=== PATIENT | female | born 1965 | race Caucasian/White ===

== ENCOUNTER 2024-11-12 06:20 | Day surgery (SDC) | payer BC, SELFPAY ==
[2024-11-09 09:15] VITALS: BMI 31.9
--- NOTE | 2024-11-11 21:06 | PM.HP.1 ---
History of Present Illness History of Present Illness Chief complaint: Right Toe Amputation Narrative: 58 year old female here for wound check. Patient continues to have redness and swelling to the right second toe with improved intensity. No issues with oral antibiotics. Wound continues to drain and probes to bone since onset more than two months ago. Patient uses knee scooter at work. No pain is reported. Patient's HbA1c is usually in double digits. Patient will be getting the MRI this evening. They do not feel pain when the bone is touched, but can feel pressure. Despite being on insulin, the patient reports difficulty in managing their blood sugar levels. Patient denies n/v/f/c/sob/cp. [facility] Medical History (Updated 11/09/24 @ 09:13 by Lily Banegas, RN) Ocular hypertension Neuropathy HLD (hyperlipidemia) Diabetes Asthma HTN (hypertension) Surgical History (Updated 11/09/24 @ 08:47 by Lily Banegas RN) S/P foot surgery, left (2020) Hx of tonsillectomy Social History Smoking Status: Never smoker alcohol intake: current Meds Home Medications and Allergies Home Medications ?Medication ?Instructions ?Recorded ?Confirmed ?Type aspirin 81 mg capsule 81 mg PO DAILY 11/09/24 11/09/24 History atorvastatin 80 mg tablet 80 mg PO DAILY 11/09/24 11/09/24 History insulin glargine 100 unit/mL (3 unit SUBCUT 11/09/24 History mL) subcutaneous pen (Lantus Solostar U-100 Insulin) insulin lispro 100 unit/mL SUBCUT 11/09/24 History subcutaneous pen liraglutide 0.6 mg/0.1 mL (18 mg/3 1.8 mg SUBCUT DAILY 11/09/24 11/09/24 History mL) subcutaneous pen injector (Victoza 3-Clyde) lisinopril 20 mg tablet 20 mg PO DAILY 11/09/24 11/09/24 History metformin 500 mg tablet 1,000 mg PO BID 11/09/24 11/09/24 History Allergies Allergy/AdvReac Type Severity Reaction Status Date / Time dulaglutide AdvReac Depression Verified 11/09/24 09:06 Exam Skin Other: Right second toe: full-thickness down to bone, underminig and tunneling, and mild localized SSTI. Assessment & Plan Assessment & Plan narrative: 1. Right second toe osoteomyelitis Patient seen and evaluated. Recommended partial amputation for source control of infection and closure. Reviewed risks and benefits with all questions answered to satisfaction. Time-Based Coding :: [TOTAL MINUTES] spent with patient and on the chart (including review of chart, obtaining history, exam, reviewing outside data, placing orders, documenting exam and treatment plan, and counseling patient) on [DATE].
--- NOTE | 2024-11-12 | PATH_ITS ---
[facility] Accession Number: [id number] No. of containers..01 Tissue . 01 Material submitted: . toe - RIGHT SECOND TOE BONE AND TISSUE BEFORE IRRIGATION . 01 Diagnosis: RIGHT SECOND TOE: Trabecular bone with evidence of remodeling and interspersed marrow with mild fibrosis. Adjacent periosteal fibroconnective tissue with reactive changes. No evidence of osteomyelitis. MRV 11/17/2024 1747 Local . 01 Electronically signed: . Mary Olivera MD, Pathologist NPI- [id number] . 01 Gross description: . Received in formalin with two identifiers and right second toe bone and tissue before irrigation, are two bauman fragments of bone with attached soft tissue measuring 1.9 x 1.0 x 0.7 cm and 0.9 x 0.8 x 0.6 cm. Sectioning reveals bauman osseous tissue that is relatively easy to section with a scalpel. The specimen is submitted entirely in A1-A2 following decalcification. ([id number]) /MRV 11/13/2024 1352 Local . 01 Pathologist provided ICD-10: M86.9 . 01 CPT . 116591, [id number] Specimen Comment: A courtesy copy of this report has been sent to [facility] Pathology Performed at: [address] [facility], [place], [place] [id number] MD David Torres MD Phone: [phone]
[2024-11-12 06:51] VITALS: BP 150/73; PULSE 69; RESP 16; TEMP 36.4; O2SAT 98; BMI 30.2
[2024-11-12] MEDS: LACTATED RINGERS 1,000 ML 100 ML IV (07:19)
--- NOTE | 2024-11-12 07:39 | PM.PREOP ---
Pre-operative Note Interval Note History & Physical reviewed/Exam performed by Physician: Yes Changes to H&P: No
[2024-11-12] MEDS: INSULIN LISPRO 100 UNIT/ML 3ML VIAL SUBCUT (07:47)
[2024-11-12] MEDS: CEFAZOLIN 2 GM/100 ML PREMIX 100 ML IV (08:05)
[2024-11-12] MEDS: LIDOCAINE 1% 20 ML INJ (08:08)
--- NOTE | 2024-11-12 08:19 | SUR.OPER ---
Supine on padded OR bed, head on pillow, arms secured on padded arm boards at <90 degrees abduction, legs uncrossed, safety belt at thigh, tape over blanket over non operative lower leg. Operative leg bumped, gel pad placed by right hip for positioning. Dr. ingram in room at time of positioning, all pressure points covered.
[2024-11-12] MEDS: SODIUM CHLORIDE 0.9% 1,000 ML, GENTAMICIN 80 MG IRR (08:35)
[2024-11-12] MEDS: VANCOMYCIN 1,000 MG VIAL 1000 MG TOP (08:35)
[2024-11-12] MEDS: BUPIVACAINE 0.25% (PF) VIAL 30 ML INJ (08:58)
[2024-11-12 09:09] VITALS: BP 153/56; PULSE 73; RESP 14; TEMP 36.2; O2SAT 98
[2024-11-12 09:13] VITALS: BP 141/83; PULSE 71; RESP 22; O2SAT 97
[2024-11-12 09:18] VITALS: BP 133/75; PULSE 72; RESP 22; O2SAT 97
[2024-11-12 09:24] VITALS: BP 161/63; PULSE 74; RESP 16; O2SAT 97
[2024-11-12 09:31] VITALS: BP 159/72; PULSE 72; RESP 11; TEMP 36.2; O2SAT 98
--- NOTE | 2024-11-12 09:31 | PM.OP.1 ---
Operative Date/Time/Diagnoses Date of procedure: 11/12/24 Time of procedure: 07:45 Pre-op diagnosis: 1. Right second toe osteomyelitis 2. Right foot diabetic ulcer Post-op diagnosis: same Procedure & Clinicians Procedure: 1. Right second toe partial amputation 2. Right foot wound debridement Same procedure as scheduled: Yes Indications: Right second toe chronic diabetic ulcer with bone infection Surgeon: Raffi Kraft Click Yes if Unassisted: Yes Anesthesia Type: MAC +/- and Local Operative Notes Findings: Devitalized tissue with necrotic fat and bone to distal right second toe Closure Type: primary Specimen(s): other (1. Right second toe bone before irrigation to microbiology and pathology and 2. Right second toe bone after irrigation to microbiology) Estimated Blood Loss (mL): 15 Blood products transfused: none Tourniquet time (min): 0 Procedure in detail: Patient was identified and brought into the operating room. Patient was in supine position for the duration of procedure. An ankle tourniquet was applied but not inflated for this case. Right foot was prepped and draped in the usual sterile fashion, followed by official timeout with the surgical team all in agreement. Attention was first directed to the open wound at right plantar midfoot. Sharp debridement was carried out using # 15 scalpel down to subcutaneous tissue. Hemostasis was achieved with pressure and covered with Tegaderm. Attention was then directed to to the right second toe with chronic ulcer that probes to bone. A fish-mouth incision was drawn and carried out using # 15 scalpel down to the bone and joint, which was disarticulated at the DIP joint. Removed toe was sent to microbiology and pathology for further evaluation. Removed toe was notable for devitalized and scar tissues and bone. Open surgical site was irrigated using 1 liters of saline mixed with 80 mg gentamicin solution. All outer gloves were replaced with new sterile glove, and previously used instruments were set aside. A bone cutter was used to remove a sliver of middle phalanx head, which was sent to microbiology as proximal margin. Vancomycin was added, and incision site was closed using 4-0 vicryl and 4-0 nylon. Procedure site was cleaned, and bulky sterile dressing was applied using iodine soaked Adaptic, gauze, and Kerlix. Surgical foot was placed into a post-op shoe. Patient tolerated procedure without complication and was trasnferred to PACU with all vital signs stable. Complications: none Post-operative Condition: stable Disposition: same day surgery Plan for aftercare: NWB to surggical limb. Elevative above heart. Ice behind knee when awake. Take medications and follow-up as instructed.
== END 2024-11-12 09:52 | disposition home or self-care (01) ==
PROVIDERS: Referring Provider Podiatrist Foot & Ankle Surgery; Visit Provider Podiatrist Foot & Ankle Surgery
PROC: (CPT 28825; principal; 2024-11-12 07:45)
DX: M86.271 Subacute osteomyelitis, right ankle and foot (principal); E11.621 Type 2 diabetes mellitus with foot ulcer; L97.514 Non-pressure chronic ulcer of other part of right foot with necrosis of bone; Z79.4 Long term (current) use of insulin; Z79.84 Long term (current) use of oral hypoglycemic drugs
CPT/HCPCS: 28825; 82962; 87070; 87075; 87077; 87147; 87176; 87186; 87205; J0690; J1815; J2250; J2704